=== PATIENT | male | born 1955 | race Caucasian/White ===

== ENCOUNTER → 2017-02-16 | Outpatient (CLI) | payer BC | END | disposition home or self-care (01) | LOC: RAD 08:17 | PROVIDERS: ATTEND Nurse Practitioner Family | DX: S09.90XA Unspecified injury of head, initial encounter (principal); X58.XXXA Exposure to other specified factors, initial encounter; Y93.89 Activity, other specified; Y92.89 Other specified places as the place of occurrence of the external cause; Y99.8 Other external cause status | CPT/HCPCS: 36415; 70470; 82565 ==

== ENCOUNTER → 2017-03-12 | Outpatient (CLI) | payer BC | END | disposition home or self-care (01) | LOC: CFH 13:36 | PROVIDERS: ATTEND Nurse Practitioner Family | DX: N28.1 Cyst of kidney, acquired (principal); K44.9 Diaphragmatic hernia without obstruction or gangrene; M51.36 Other intervertebral disc degeneration, lumbar region | CPT/HCPCS: 74150 ==

== ENCOUNTER 2017-04-10 13:51 | Emergency (ER) | payer BC ==
[~2017-04-10] VITALS: Ht 175.3 cm; Wt 106.5 kg
[2017-04-10] MEDS ORDERED: SODIUM CHLORIDE FLUSH 10ML SYR IVF ONE (15:00)
[2017-04-10] MEDS ORDERED: SODIUM CHLORIDE 0.9% 1,000ML IVBOLUS ONE (15:00)
[2017-04-10 15:35] LABS: HEMATOCRIT 39.5 % (39.2-51.8); HEMOGLOBIN 13.3 g/dL (13.7-18.0); WHITE BLOOD COUNT 8.4 x10^3/uL (3.4-10)
[2017-04-10 15:48] LABS: BLOOD UREA NITROGEN 24 mg/dL (7-18)
[2017-04-10 15:52] LABS: ASPARTATE AMINO TRANSFERASE 18 U/L (15-37)
[2017-04-10] MEDS ORDERED: OMNIPAQUE 350 MG/ML, 100ML BOTTLE ONE (16:32)
[2017-04-10 17:35] VITALS: BP 150/88
== END 2017-04-10 17:38 | disposition home or self-care (01) ==
LOC: ED 17:30
DX: S39.91XA Unspecified injury of abdomen, initial encounter (principal); M19.90 Unspecified osteoarthritis, unspecified site; X58.XXXA Exposure to other specified factors, initial encounter; Y93.89 Activity, other specified; Y92.89 Other specified places as the place of occurrence of the external cause; Y99.8 Other external cause status
CPT/HCPCS: 36415; 74177; 80053; 81003; 83690; 85025; 93005; 96360; 96361; 99285; J7030; Q9967

== ENCOUNTER → 2017-05-14 | Outpatient (CLI) | payer BC | END | disposition home or self-care (01) | LOC: CFH 07:09 | PROVIDERS: ATTEND Physician Assistant | DX: N28.1 Cyst of kidney, acquired (principal); K76.9 Liver disease, unspecified | CPT/HCPCS: 76700 ==

== ENCOUNTER → 2020-09-28 | Outpatient (CLI) | payer MEDICARE | END | disposition home or self-care (01) | LOC: CFH 09:44 | PROVIDERS: ATTEND Internal Medicine Cardiovascular Disease | DX: I08.3 Combined rheumatic disorders of mitral, aortic and tricuspid valves (principal); Z85.850 Personal history of malignant neoplasm of thyroid | CPT/HCPCS: 93306 ==

== ENCOUNTER → 2021-01-24 | Outpatient (CLI) | payer MEDICARE ==
[~2021-01-24] MED LIST: ASPI81TA45 PO; ATOR20TA37 PO; GLIP5TAB10 PO; IBUP-1840 PO; LEVO150T5 PO; METF500T17 PO; METO25TA35 PO
[2021-01-24 17:10] LABS: BASOPHILS % (AUTO) 1 % (0-1); EOSINOPHILS % (AUTO) 5 % (1-7); LYMPHOCYTES % (AUTO) 30 % (22-44); MEAN CORPUSCULAR HEMOGLOBIN 30.1 pg (27.5-34.5); MEAN CORPUSCULAR HGB CONC 33.5 g/dL (33.2-36.2); MEAN PLATELET VOLUME 8.6 fL (7.4-10.4); MONOCYTES % (AUTO) 8 % (2-9); NEUTROPHILS % (AUTO) 57 % (42-75); PLATELET COUNT 240 x10^3/uL (130-400); RED BLOOD COUNT 4.87 x10^6/uL (4.38-5.82); RED CELL DISTRIBUTION WIDTH 13.7 % (9.4-14.8)
[2021-01-24 17:13] LABS: MICROSCOPIC NOT IND
[2021-01-24 17:17] LABS: INTERNATIONAL NORMALIZED RATIO 1.02 (0.93-1.1); MD NO; PROTHROMBIN TIME 10.9 Seconds (9.6-11.5)
[2021-01-24 17:19] LABS: ALBUMIN 4.2 g/dL (3.4-5.0); ANION GAP 8 mmol/L (5-15); CALCIUM 8.9 mg/dL (8.5-10.1); CHLORIDE 111 mmol/L (98-107)
[2021-01-24 17:22] LABS: ALANINE AMINOTRANSFERASE 36 U/L (12-78); ALKALINE PHOSPHATASE 80 U/L (45-117); BILIRUBIN,TOTAL 0.6 mg/dL (0.2-1.0); TOTAL PROTEIN 7.9 g/dL (6.4-8.2)
== END | disposition home or self-care (01) ==
LOC: STAR 15:28
PROVIDERS: ATTEND Urology
DX: Z01.818 Encounter for other preprocedural examination (principal); N43.3 Hydrocele, unspecified; R94.31 Abnormal electrocardiogram [ECG] [EKG]; Z20.822 Contact with and (suspected) exposure to COVID-19
CPT/HCPCS: 36415; 80053; 81003; 85025; 85610; 87086; 93005; U0003; U0005

== ENCOUNTER 2021-01-30 10:37 | Day surgery (SDC) | payer MEDICARE ==
[~2021-01-30] VITALS: Ht 175.3 cm; Wt 106.6 kg
[2021-01-30 11:05] VITALS: BP 145/91
[2021-01-30] MEDS ORDERED: LIDOCAINE-MPF 1%, 2ML ONE (11:13)
[2021-01-30] MEDS ORDERED: CHLORHEXIDINE 15 ML UDC ONE (11:14)
[2021-01-30] MEDS ORDERED: CHLORHEXIDINE 15 ML UDC PO ONE (11:30)
[2021-01-30] MEDS ORDERED: LIDOCAINE-MPF 1%, 2ML INFIL ONE (11:30)
[2021-01-30] MEDS ORDERED: LACTATED RINGERS 1,000 ML IV SCH (11:30)
[2021-01-30] MEDS ORDERED: BUPIVACAINE/PF 0.5% ONE (13:06)
[2021-01-30] MEDS ORDERED: FENTANYL PF 250 MCG/5ML ONE (13:06)
[2021-01-30] MEDS ORDERED: SCOPOLAMINE 1MG PATCH TD ONE (13:21)
[2021-01-30] MEDS ORDERED: DEXAMETHASONE 4 MG/ML, 1ML ONE ×2 (13:23)
[2021-01-30] MEDS ORDERED: ONDANSETRON 2MG/ML, 2ML ONE ×3 (13:23)
[2021-01-30] MEDS ORDERED: ACETAMINOPHEN 325 MG TABLET PO PRN (13:30)
[2021-01-30] MEDS ORDERED: HYDROcodone/APAP 7.5-325MG/15ML UDC PO PRN (13:30)
[2021-01-30] MEDS ORDERED: ONDANSETRON 2MG/ML, 2ML IVPush PRN (13:30)
[2021-01-30] MEDS ORDERED: FENTANYL PF 100 MCG/2ML IV PRN (13:30)
[2021-01-30] MEDS ORDERED: hydrALAzine 20 MG/ML, 1ML IV PRN (13:30)
[2021-01-30] MEDS ORDERED: MEPERIDINE/PF 25MG/0.5ML IVPush PRN (13:30)
[2021-01-30] MEDS ORDERED: LABETALOL 5MG/ML, 20ML IV PRN (13:30)
[2021-01-30] MEDS ORDERED: HYDROmorphone 1 MG/ML, 1ML INJ IVPush PRN (13:30)
== END 2021-01-30 16:20 | disposition home or self-care (01) ==
LOC: OUT 10:37
PROVIDERS: ATTEND Urology
DX: N43.3 Hydrocele, unspecified (principal); E11.22 Type 2 diabetes mellitus with diabetic chronic kidney disease; I12.9 Hypertensive chronic kidney disease with stage 1 through stage 4 chronic kidney disease, or unspecified chronic kidney disease; N18.9 Chronic kidney disease, unspecified; E78.5 Hyperlipidemia, unspecified; I25.10 Atherosclerotic heart disease of native coronary artery without angina pectoris; J45.909 Unspecified asthma, uncomplicated; Z79.82 Long term (current) use of aspirin; Z79.84 Long term (current) use of oral hypoglycemic drugs; Z79.890 Hormone replacement therapy; Z79.899 Other long term (current) drug therapy; Z88.5 Allergy status to narcotic agent; Z88.8 Allergy status to other drugs, medicaments and biological substances
CPT/HCPCS: 55040; 82962; J1100; J2405; J3010; J7120

== ENCOUNTER 2021-03-08 10:03 | Day surgery (SDC) | payer MEDICARE ==
[2021-03-07 12:00] LABS: BASOPHILS % (AUTO) 1 % (0-1); EOSINOPHILS % (AUTO) 3 % (1-7); LYMPHOCYTES % (AUTO) 32 % (22-44); MEAN CORPUSCULAR HEMOGLOBIN 30.5 pg (27.5-34.5); MEAN CORPUSCULAR HGB CONC 33.8 g/dL (33.2-36.2); MEAN PLATELET VOLUME 8.7 fL (7.4-10.4); MONOCYTES % (AUTO) 8 % (2-9); NEUTROPHILS % (AUTO) 57 % (42-75); PLATELET COUNT 211 x10^3/uL (130-400); RED BLOOD COUNT 4.79 x10^6/uL (4.38-5.82); RED CELL DISTRIBUTION WIDTH 13.6 % (9.4-14.8)
[2021-03-07 12:03] LABS: PROTHROMBIN TIME 10.7 Seconds (9.6-11.5)
[2021-03-07 12:07] LABS: ALBUMIN 3.8 g/dL (3.4-5.0); ANION GAP 5 mmol/L (5-15); CALCIUM 9.3 mg/dL (8.5-10.1); CHLORIDE 110 mmol/L (98-107)
[2021-03-07 12:10] LABS: ALANINE AMINOTRANSFERASE 33 U/L (12-78); ALKALINE PHOSPHATASE 87 U/L (45-117); BILIRUBIN,TOTAL 0.5 mg/dL (0.2-1.0); CREATININE 1.37 mg/dL (0.7-1.3); TOTAL PROTEIN 7.6 g/dL (6.4-8.2)
[2021-03-07 12:17] LABS: MICROSCOPIC NOT IND
[~2021-03-08] VITALS: Ht 175.3 cm; Wt 105.9 kg
[~2021-03-08 10:03] MED LIST changes: +BUPIVACAINE/PF 0.5% ONE
[2021-03-08] MEDS ORDERED: CHLORHEXIDINE 15 ML UDC PO ONE (10:30)
[2021-03-08] MEDS ORDERED: LACTATED RINGERS 1,000 ML IV SCH (10:30)
[2021-03-08 10:31] VITALS: BP 130/65
[2021-03-08] MEDS ORDERED: CHLORHEXIDINE 15 ML UDC ONE (10:35)
[2021-03-08] MEDS ORDERED: LIDOCAINE-MPF 2%, 2ML ONE (10:46)
[2021-03-08] MEDS ORDERED: LIDOCAINE-MPF 1%, 2ML ONE (10:49)
[2021-03-08] MEDS ORDERED: MIDAZOLAM 1 MG/ML, 2ML ONE (10:52)
[2021-03-08] MEDS ORDERED: LIDOCAINE-MPF 1%, 2ML INFIL ONE (11:00)
[2021-03-08] MEDS ORDERED: ONDANSETRON 2MG/ML, 2ML ONE (11:10)
[2021-03-08] MEDS ORDERED: PROPOFOL 10 MG/ML, 20ML ONE (11:10)
[2021-03-08] MEDS ORDERED: ROCURONIUM 10 MG/ML,10ML ONE (11:10)
[2021-03-08] MEDS ORDERED: DEXAMETHASONE 4 MG/ML, 1ML ONE (11:10)
[2021-03-08] MEDS ORDERED: SUCCINYLCHOLINE 20 MG/ML, 10ML ONE (11:10)
[2021-03-08] MEDS ORDERED: CEFAZOLIN 1,000 MG ONE (11:10)
[2021-03-08] MEDS ORDERED: FENTANYL PF 250 MCG/5ML ONE (12:34)
[2021-03-08] MEDS ORDERED: DIAZEPAM 5 MG/ML, 2ML IV PRN ×2 (13:00)
[2021-03-08] MEDS ORDERED: ONDANSETRON 2MG/ML, 2ML IVPush PRN (13:00)
[2021-03-08] MEDS ORDERED: hydrALAzine 20 MG/ML, 1ML IV PRN (13:00)
[2021-03-08] MEDS ORDERED: HYDROmorphone 1 MG/ML, 1ML INJ IV PRN (13:00)
[2021-03-08] MEDS ORDERED: ALBUTEROL SULFATE 2.5 MG/3 ML NPPB PRN (13:00)
[2021-03-08] MEDS ORDERED: LABETALOL 5MG/ML, 20ML IV PRN (13:00)
[2021-03-08] MEDS ORDERED: KETOROLAC 30 MG/1 ML IV PRN (13:00)
[2021-03-08] MEDS ORDERED: OXYcodone 5 MG/5 ML ORAL.SOL UDC PO PRN (13:00)
[2021-03-08] MEDS ORDERED: MEPERIDINE/PF 25MG/0.5ML IVPush PRN (13:00)
[2021-03-08] MEDS ORDERED: FENTANYL PF 100 MCG/2ML IV PRN (13:00)
[2021-03-08] MEDS ORDERED: PROMETHAZINE 25 MG/ML, 1ML IV PRN (13:00)
[2021-03-08] MEDS ORDERED: OXYcodone 5 MG/5 ML ORAL.SOL UDC ONE (13:14)
[2021-03-08] MEDS ORDERED: ACETAMINOPHEN 650 MG/20.3 ML UDC ONE (13:20)
[2021-03-08] MEDS ORDERED: ACETAMINOPHEN 325 MG TABLET PO PRN (13:30)
== END 2021-03-08 14:40 | disposition home or self-care (01) ==
LOC: OUT 10:03
PROVIDERS: ATTEND Urology
DX: N43.2 Other hydrocele (principal); I10 Essential (primary) hypertension; E11.9 Type 2 diabetes mellitus without complications; E78.5 Hyperlipidemia, unspecified; Z20.822 Contact with and (suspected) exposure to COVID-19; Z79.01 Long term (current) use of anticoagulants; Z79.84 Long term (current) use of oral hypoglycemic drugs; Z79.891 Long term (current) use of opiate analgesic; Z79.899 Other long term (current) drug therapy; Z88.5 Allergy status to narcotic agent; Z85.850 Personal history of malignant neoplasm of thyroid; Z98.890 Other specified postprocedural states
CPT/HCPCS: 36415; 55040; 80053; 81003; 82962; 85025; 85610; 87086; 88302; J0330; J0690; J1100; J2250; J2405; J2704; J3010; J7120; U0003; U0005